=== PATIENT | female | born 1995 | race Caucasian/White ===

== ENCOUNTER 2020-10-09 06:00 | Inpatient (IN) ==
[2020-10-09] MEDS ORDERED: Naloxone 0.4 MG/ML INJ IVP PRN (06:04)
[2020-10-09] MEDS ORDERED: Metoclopramide 10 MG/2 ML VIAL IVP PRN (06:04)
[2020-10-09] MEDS ORDERED: *HR* Nalbuphine 10 MG/ML AMPUL IV PRN (06:04)
[2020-10-09] MEDS ORDERED: Lidocaine 1% 20 ML MDV INFILT PRN (06:04)
[2020-10-09] MEDS ORDERED: Ondansetron 4 MG/2 ML VIAL IVP PRN (06:04)
[2020-10-09] MEDS ORDERED: Famotidine 20 MG/2 ML VIAL IVP PRN (06:04)
[2020-10-09] MEDS ORDERED: Ringers Solution, Lactated 1,000 ML IVC SCH (06:15)
[2020-10-09 06:39] LABS: Basophils # 0.1 K/mcL (0.0-0.2); Basophils % 0.6 %; Eosinophils # 0.1 K/mcL (0.0-0.6); Eosinophils % 1.1 %; Hematocrit 40.2 % (35.3-44.9); Hemoglobin 12.8 g/dL (11.5-15.4); Immature Granulocytes % 2.8 % (0-4); Lymphocytes % 15.5 %; Mean Corpuscular HGB Conc 31.8 g/dL (31.6-35.5); Mean Corpuscular Hemoglobin 27.6 pg (28.0-33.3); Mean Corpuscular Volume 86.6 fL (83.0-100.0); Mean Platelet Volume 9.8 fL (9.4-12.4); Monocytes # 0.9 K/mcL (0.0-1.3); Monocytes % 7.3 %; Neutrophils # 9.2 K/mcL (1.6-8.9); Platelet Count 217 K/mcL (140-400); Red Blood Count 4.64 M/mcL (3.82-4.97); Red Cell Distribution Width 13.9 % (11.5-14.5); Segmented Neutrophils % 72.7 %; White Blood Count 12.7 K/mcL (4.3-11.1)
[2020-10-09] MEDS: miSOPROStoL 25 MCG TABLET PO PRN ×2 (06:54→11:10)
[2020-10-09] MEDS ORDERED: EPHEDrine 50 MG/ML VIAL IVP PRN (08:28)
[2020-10-09] MEDS ORDERED: Epidural Premix (fent/bupiv) 110 ML EP SCH (08:30)
[2020-10-09 11:23] LABS: Amphetamine Screen,Urine Negative ng/mL (Cutoff=1000); Barbiturate Screen,Urine Negative ng/mL (Cutoff=200); Benzodiazepines Screen,Urine Negative ng/mL (Cutoff=200); Cannabinoid Screen,Urine Negative ng/mL (Cutoff = 50); Cocaine Screen,Urine Negative ng/mL (Cutoff= 300); Opiate Screen,Urine Negative ng/mL (Cutoff=300); Phencyclidine Screen,Urine Negative ng/mL (Cutoff=25)
[2020-10-09] MEDS ORDERED: Oxytocin 20 units/ LR 1000 mL 20 UNIT/1,000 ML BAG IVC SCH (15:00)
[2020-10-09] MEDS ORDERED: *HR* FentaNYL (PF) 100 MCG/2 ML VIAL ONE (19:58)
[2020-10-09] MEDS ORDERED: Ropivacaine/PF 0.2% 20 ML VIAL ONE (19:58)
[2020-10-09] MEDS ORDERED: Acetaminophen 325 MG TABLET PO ONE (20:38)
[2020-10-10] MEDS ORDERED: Oxytocin 20 units/ LR 1000 mL 20 UNIT/1,000 ML BAG IVC SCH (05:30)
[2020-10-10] MEDS ORDERED: Measles/Mumps/Rubella Vacc 0.5 ML VIAL SQ PRN (05:30)
[2020-10-10] MEDS ORDERED: Lanolin 7 G OINT...G. TP PRN (05:30)
[2020-10-10] MEDS ORDERED: Rho Immune Globulin 1,500 UNIT SYRINGE IM PRN (05:30)
[2020-10-10] MEDS ORDERED: Oxytocin 20 units/ LR 1000 mL 20 UNIT/1,000 ML BAG IVC ONE (05:30)
[2020-10-10] MEDS ORDERED: Benzocaine/Menthol 56 GM AEROSOL SPRAY TP PRN (05:30)
[2020-10-10] MEDS: Prenatal Vit/FA 1 EACH TABLET PO SCH (08:25)
[2020-10-10] MEDS: Ibuprofen 600 MG TABLET PO SCH ×3 (08:25→23:43)
[2020-10-10] MEDS: Acetaminophen 325 MG TABLET PO SCH ×3 (08:26→23:43)
[2020-10-11] MEDS: Ibuprofen 600 MG TABLET PO SCH (06:25)
[2020-10-11] MEDS: Acetaminophen 325 MG TABLET PO SCH (06:26)
[2020-10-11 07:39] VITALS: BP 110/65; PULSE 81; TEMP 97.9; O2SAT 98
[2020-10-11] MEDS: Prenatal Vit/FA 1 EACH TABLET PO SCH (08:24)
[2020-10-11 09:48] LABS: Basophils # 0.1 K/mcL (0.0-0.2); Basophils % 0.4 %; Eosinophils # 0.2 K/mcL (0.0-0.6); Eosinophils % 1.4 %; Hematocrit 36.2 % (35.3-44.9); Hemoglobin 11.8 g/dL (11.5-15.4); Lymphocytes # 1.5 K/mcL (0.6-4.6); Lymphocytes % 11.5 %; Mean Corpuscular HGB Conc 32.6 g/dL (31.6-35.5); Mean Corpuscular Hemoglobin 28.4 pg (28.0-33.3); Mean Corpuscular Volume 87.2 fL (83.0-100.0); Mean Platelet Volume 9.7 fL (9.4-12.4); Monocytes # 0.9 K/mcL (0.0-1.3); Neutrophils # 10.3 K/mcL (1.6-8.9); Platelet Count 219 K/mcL (140-400); Red Blood Count 4.15 M/mcL (3.82-4.97); Red Cell Distribution Width 14.1 % (11.5-14.5); Segmented Neutrophils % 77.7 %; White Blood Count 13.2 K/mcL (4.3-11.1)
== END 2020-10-11 12:31 | disposition home or self-care (01) | DRG 807 ==
LOC: 1NENULAB 06:02 → 1NENUOBS 10-10 07:47
PROVIDERS: ADMIT Student in an Organized Health Care Education/Training Program; ATTEND Student in an Organized Health Care Education/Training Program